=== PATIENT | female | born 1985 | race Caucasian/White ===

== ENCOUNTER 2017-09-09 14:01 | Outpatient (CLI) | payer OTHER | END 2017-09-09 14:02 | disposition home or self-care (01) | LOC: BICULT 14:01 | PROVIDERS: ATTEND Internal Medicine | DX: E01.0 Iodine-deficiency related diffuse (endemic) goiter (principal); E04.9 Nontoxic goiter, unspecified; E04.2 Nontoxic multinodular goiter | CPT/HCPCS: 76536 ==

== ENCOUNTER 2017-10-24 17:04 | Emergency (ER) | payer OTHER, SELFPAY ==
[2017-10-24 17:33] LABS: Bilirubin Negative (Negative); Blood, Urine Negative (Negative); Clarity Slightly Cloudy (Clear); Glucose, Urine (Dipstick) Negative (Negative); Leukocyte Negative (Negative); Nitrite Negative (Negative); Protein, Urine (Dipstick) Negative (Neg-Trace); Specific Gravity, Urine 1.015 (1.005-1.030); Urobilinogen 0.2 mg/dL (0.2-1.0)
[2017-10-24 17:57] LABS: Pregnancy Test - Urine (BHCG) Negative (Negative); Pregu Control Background? CLEAR/WHITE (CLR/WHITE); Pregu Control Bar Appear? YES (CONTROL BAR); Specific Gravity 1.015 (1.002-1.036)
[2017-10-27 13:18] LABS: Chlamydia by PCR Not Detected (NotDetected); GC by PCR Not Detected (NotDetected)
== END 2017-10-24 18:56 | disposition home or self-care (01) ==
LOC: SCSER 17:04
DX: N89.8 Other specified noninflammatory disorders of vagina (principal)
CPT/HCPCS: 81003; 81025; 87480; 87491; 87510; 87591; 87660; 99283

== ENCOUNTER 2017-11-07 10:18 | Emergency (ER) | payer SELFPAY ==
[2017-11-07 10:39] LABS: Bilirubin Negative (Negative); Blood, Urine Negative (Negative); Clarity Slightly Cloudy (Clear); Glucose, Urine (Dipstick) Negative (Negative); Leukocyte Negative (Negative); Nitrite Negative (Negative); Protein, Urine (Dipstick) Negative (Neg-Trace); Urobilinogen 0.2 mg/dL (0.2-1.0); pH, Urine 6.5 (5.0-9.0)
[2017-11-07 10:40] LABS: Pregnancy Test - Urine (BHCG) POSITIVE (Negative); Pregu Control Background? CLEAR/WHITE (CLR/WHITE); Pregu Control Bar Appear? YES (CONTROL BAR)
--- NOTE | 2017-11-07 12:55 | ULT ---
TRANSABDOMINAL AND TRANSVAGINAL PELVIC ULTRASOUND: Date: 11/07/17 PROVIDED CLINICAL HISTORY: Positive beta HCG. FINDINGS: Uterus measures about 8.2 x 5.8 x 6.9 cm. Endometrial thickening is noted, measuring about 2.4 cm. Th ere is a tiny circumscribed focus of diminished echogenicity within the endometrial canal which is no nspecific. This could reflect a very early gestational sac, but demonstrates no yolk sac or lois e for confirmation of such. The right and left ovaries demonstrate a normal sonographic appearance. Color Doppler and spectral an alysis of the ovarian waveforms demonstrates normal flow bilaterally. There is a small amount of poss ibly physiologic free pelvic fluid. IMPRESSION: No definite evidence for intrauterine gestational sac. Findings may reflect an early gestational sac. Correlation with follow-up beta HCG values/ultrasound recommended. POS: [facility]
[2017-11-10 23:41] LABS: Chlamydia by PCR Not Detected (NotDetected); GC by PCR Not Detected (NotDetected)
== END 2017-11-07 12:27 | disposition home or self-care (01) ==
LOC: SCSER 10:18
DX: O99.89 Other specified diseases and conditions complicating pregnancy, childbirth and the puerperium (principal); R35.0 Frequency of micturition; R39.15 Urgency of urination
CPT/HCPCS: 36415; 76856; 81003; 81025; 84702; 87480; 87491; 87510; 87591; 87660

== ENCOUNTER 2018-01-16 17:44 | Emergency (ER) | payer OTHER ==
--- NOTE | 2018-01-16 18:52 | RAD ---
CHEST TWO VIEWS: 01/16/18 HISTORY: Cough. COMPARISON: None. FINDINGS: Normal cardiac silhouette. The pulmonary vessels and hilum are normal. Costophrenic angles are clear. No consolidation or mass. No pneumothorax or osseous abnormalities. IMPRESSION: No acute cardiopulmonary process. POS: [facility]
== END 2018-01-16 19:07 | disposition home or self-care (01) ==
LOC: SCSER 17:44
DX: O99.512 Diseases of the respiratory system complicating pregnancy, second trimester (principal); Z3A.16 16 weeks gestation of pregnancy; J20.9 Acute bronchitis, unspecified
CPT/HCPCS: 71046

== ENCOUNTER 2018-04-01 12:56 | Outpatient (CLI) | payer OTHER ==
--- NOTE | 2018-04-01 14:44 | ULT ---
THYROID ULTRASOUND: History: Thyroid nodule. FINDINGS: Real-time imaging of the right and left lobes of the thyroid were performed. Right lobe measures 1.9 x 2 x 4.3 cm. The left lobe 1.6 x 1.6 x 4 cm. There are small bilateral thyroid nodules all of which are less than 1 cm in size. These appear to be solid or some may be complex. These all appear well circumscribed. IMPRESSION: Tiny bilateral thyroid nodules. POS: [facility]
== END 2018-04-01 12:57 | disposition home or self-care (01) ==
LOC: SCSULT 12:56
PROVIDERS: ATTEND Internal Medicine
DX: E04.2 Nontoxic multinodular goiter (principal)
CPT/HCPCS: 76536

== ENCOUNTER → 2018-04-19 | Day surgery (SDC) | payer OTHER | LOC: ER/OP 11:40 | PROVIDERS: ATTEND Obstetrics & Gynecology | DX: O36.0190 Maternal care for anti-D [Rh] antibodies, unspecified trimester, not applicable or unspecified (principal) | CPT/HCPCS: 90384; 96372 ==

== ENCOUNTER 2018-05-22 11:14 | Emergency (ER) | payer OTHER | END 2018-05-22 12:30 | disposition home or self-care (01) | LOC: ERS 11:14 | DX: O99.513 Diseases of the respiratory system complicating pregnancy, third trimester (principal); J06.9 Acute upper respiratory infection, unspecified; Z3A.34 34 weeks gestation of pregnancy | CPT/HCPCS: 87081; 87430; 87804; 99283 ==

== ENCOUNTER 2018-06-06 13:07 | Day surgery (SDC) | payer OTHER ==
[2018-06-06] MEDS ORDERED: Lactated Ringer's 1,000 ML IV SCH (14:30)
[2018-06-06 15:04] LABS: Bilirubin Negative (Negative); Blood, Urine Negative (Negative); Clarity CLEAR (Clear); Glucose, Urine (Dipstick) Negative (Negative); Leukocyte Negative (Negative); Nitrite Negative (Negative); Protein, Urine (Dipstick) Negative (Neg-Trace); Specific Gravity, Urine 1.014 (1.002-1.036); Urobilinogen 0.2 mg/dL (0.2-1.0)
[2018-06-06 15:06] LABS: Bacteria/HPF None Seen HPF (None Seen); Hyaline Casts/LPF 0-3 HYALINE CAST LPF (0-3 Hyaline); RBC/HPF 0-3 HPF (0-3); Squamous Epithelial 0-3 HPF (0-3); WBC/HPF 0-3 HPF (0-3)
--- NOTE | 2018-06-06 15:54 | PRG ---
DATE OF SERVICE: 06/06/2018 PRIMARY OB: Ruiz Guillen MD CHIEF COMPLAINT: Abdominal pain. HISTORY OF PRESENT ILLNESS: The patient is a 33-year-old G4, P3 female with an intrauterine at 35 weeks and 1 day, who is presenting to Labor and Delivery with abdominal and back pain that began this morning about 6 o'clock. The patient reports that she has history of delivery with one of her children at 36 weeks and is here just to make sure she is not in labor. The patient reports that her contractions have been improving since they first started. She does report that she had intercourse last night. She denies any vaginal bleeding or leakage of fluid. She does report she had some burning with urination since intercourse and that she has had a diagnosis of yeast infection, which was treated about a week ago and prior to that had been on antibiotics for an upper respiratory infection. The patient denies any fever, fall, headache, chest pain, shortness of breath, nausea, vomiting, diarrhea, or constipation. She reports she has had real significant hip problems with this . Denies any rashes, any weakness or other joint problems. She denies vaginal bleeding. She reports some urinary burning when she pees. PAST MEDICAL HISTORY: Migraines. PAST SURGICAL HISTORY: She had a laparoscopic surgery for ovarian cyst resulting in cystectomy and removal of one of her tubes. SOCIAL HISTORY: Reports occasional drinking when she is not . Denies drug or tobacco use. ALLERGIES: ADHESIVE TAPE. MEDICATIONS: vitamins. OB LABS: Blood type is O negative. Antibody screen is negative. She is rubella immune. RPR is nonreactive. HIV is nonreactive. Hepatitis B surface antigen is nonreactive. REVIEW OF SYSTEMS: Per HPI. PHYSICAL EXAMINATION: VITAL SIGNS: Blood pressure is 102/64, heart rate of 110, respiratory rate of 18, temperature 98.7. GENERAL: She appears to be in no acute distress. She is alert, oriented, cooperative, and pleasant to interact with. HEAD: Normocephalic, atraumatic. LUNGS: Clear to auscultation bilaterally. HEART: Has regular rate and rhythm. ABDOMEN: Gravid and soft. EXTREMITIES: Nontender. Nonedematous. CERVICAL EXAM: Per nursing staff is 270, -1 station. Tocometer heart tracing performed for abdominal pains and back pains demonstrates a fetus in the 130s with moderate long-term variability, positive 15 x 15 accelerations, no decelerations. Uterine contractions are irregular seem to be occurring about every 4 to 10 minutes and are generally spacing with IV hydration. LABORATORY DATA: Urinalysis shows negative nitrites, negative leukocyte esterase, negative white blood cells, negative bacteria, negative squamous cells. VPIII is pending. ASSESSMENT AND PLAN: The patient is a 33-year-old female, who is complaining of uterine contractions, abdominal pains, backs pains that began last night and into the morning. She admits to intercourse during this time. She also admits that these pains have been improving over time. She does have contractions on the monitor. However, she has no evidence of labor at this time nor evidence of urinary tract infection. Her VPIII is pending. The patient has been given an IV bolus of lactated Ringer given the presence of contractions and a slightly dilated cervix at 2 and 70. If she were to have cervical supervisor records change the next couple of hours, plan would be at this time to administer steroids and expectant management. If she makes no supervisor records change a couple of hours, the patient will be discharged home with appropriate treatment for her VPIII results. The patient had been given instructions to follow up with her primary OB, Dr. Guillen this week. Job ID: [id number]
[2018-06-06] MEDS ORDERED: Acetaminophen 500 MG TAB PO SCH (17:45)
== END 2018-06-06 19:05 | disposition home or self-care (01) ==
LOC: L&D/OP 13:07
PROVIDERS: ATTEND Obstetrics & Gynecology
DX: O47.03 False labor before 37 completed weeks of gestation, third trimester (principal); O99.89 Other specified diseases and conditions complicating pregnancy, childbirth and the puerperium; R10.9 Unspecified abdominal pain; M54.9 Dorsalgia, unspecified; O99.353 Diseases of the nervous system complicating pregnancy, third trimester; G43.909 Migraine, unspecified, not intractable, without status migrainosus; Z3A.35 35 weeks gestation of pregnancy; Z79.899 Other long term (current) drug therapy; Z91.048 Other nonmedicinal substance allergy status
CPT/HCPCS: 81001; 87480; 87510; 87660; 96360; 99284

== ENCOUNTER 2018-06-21 12:17 | Inpatient (IN) | payer OTHER ==
[2018-06-21 12:59] VITALS: BMI 36.7
[2018-06-21] MEDS ORDERED: Ibuprofen 800 MG TAB PO PRN (15:59)
[2018-06-21] MEDS ORDERED: Lidocaine 1% (PF) 30 ML VIAL SC PRN (15:59)
[2018-06-21] MEDS ORDERED: NS / Oxytocin 40 units/1000ml 1,000 ML IV PRN (15:59)
[2018-06-21] MEDS ORDERED: Promethazine HCl 25 MG/ML VIAL IM PRN ×2 (15:59→18:57)
[2018-06-21] MEDS ORDERED: HYDROcodone/Acetaminophen 5/325 mg Tablet PO PRN ×2 (15:59)
[2018-06-21] MEDS ORDERED: Diphenoxylate HCl/Atropine Tablet PO PRN ×2 (15:59)
[2018-06-21] MEDS ORDERED: Ondansetron PF 4 MG/2 ML Vial IVP PRN ×2 (15:59→18:57)
[2018-06-21] MEDS ORDERED: Misoprostol 200 MCG TAB PR PRN (15:59)
[2018-06-21] MEDS ORDERED: Carboprost 250 MCG/ML AMP IM PRN (15:59)
[2018-06-21] MEDS ORDERED: Butorphanol Tartrate 1 MG/ML VIAL SLOW IVP PRN (15:59)
[2018-06-21] MEDS ORDERED: NS w/ Oxytocin 10 units 500 ML IV SCH ×2 (16:00)
[2018-06-21 16:27] LABS: Hemoglobin 12.5 g/dL (12.0-16.0); Mean Corpuscular HGB CONC 33.2 g/dL (32.0-36.0); Mean Corpuscular Hemoglobin 28.4 pg (27.0-31.0); Mean Corpuscular Volume 85.5 fL (78.0-98.0); Mean Platelet Volume 7.6 fL (7.4-10.4); Platelet Count 293 thou/uL (130-400); RBC Distribution Width 13.4 % (11.5-14.5); Red Blood Cell (RBC) Count 4.39 mill/uL (4.20-5.40); White Blood Cell (WBC) Count 10.3 thou/uL (4.8-10.8)
[2018-06-21 17:03] LABS: Syphilis Antibody Nonreactive (Nonreactive); Syphilis Antibody Index 0.03 S/CO (<1.00 Non-Reactive)
[2018-06-21 17:04] LABS: HBSAg Index 0.29 S/CO (0-0.99); Hep B Surf Ag Non-Reactive S/CO (NonReactive)
[2018-06-21] MEDS: Lactated Ringer's 1,000 ML IV SCH ×3 (17:17→21:49)
[2018-06-21] MEDS ORDERED: Fentanyl 4 mcg/Bup 0.1% Cadd 100 ML ONE (18:01)
[2018-06-21] MEDS ORDERED: Calcium Carbonate 500 MG ChewTAB PO SCH (18:15)
[2018-06-21] MEDS ORDERED: diphenhydrAMINE 50 MG/ML VIAL IVP PRN (18:57)
[2018-06-21] MEDS ORDERED: ePHEDrine/0.9% NaCl/PF SYRINGE 50 mg/10 ml SLOW IVP PRN (18:57)
[2018-06-21] MEDS ORDERED: Eucerin (Mineral Oil/Petrolatum,White) 30 gm Jar TOP PRN (18:57)
[2018-06-21] MEDS ORDERED: Lactated Ringer's 500 ML IV PRN (18:57)
[2018-06-21] MEDS ORDERED: Naloxone HCl 0.4 mg/ml Vial IVP PRN ×2 (18:57)
[2018-06-21] MEDS ORDERED: Acetaminophen 325 MG TAB PO PRN (18:57)
[2018-06-21] MEDS ORDERED: Communication Order-Pharmacy FS SCH (19:00)
[2018-06-21] MEDS ORDERED: Fentanyl 4 mcg/Bupivacaine 0.1% Cassette 100 ML EPIDURAL SCH (19:00)
[2018-06-22] MEDS ORDERED: Lidocaine 1% (PF) 30 ML VIAL ONE (02:24)
[2018-06-22] MEDS ORDERED: Fentanyl 4 mcg/Bup 0.1% Cadd 100 ML ONE (02:24)
[2018-06-22] MEDS ORDERED: Misoprostol 200 MCG TAB ONE ×2 (02:25→03:30)
--- NOTE | 2018-06-22 04:45 | PDOC.LDHP ---
Labor and Delivery H&P Chief complaint: contractions HPI: 33 year old at 37 weeks 0 days presents to L&D c/o contractions. Patient has made cervical change since the clinic exam, and appears to be in labor. Cervix is 4.5cm dilated on my exam here. 2 elevated BPs also recorded today hours apart, concerning of new dx of GHTN. Due date: 07/12/18 Grav: 4 Para: 2 Current complications: none Abnormal US findings: No Current medications: pre- vitamins Allergies/Adverse Reactions: Allergies Allergy/AdvReac Type Severity Reaction Status Date / Time No Known Allergies Allergy Verified 06/21/18 12:59 Social history: none - Physical Exam Vital signs reviewed and normal: yes General: NAD, breathing through contractions Heart: RRR Lungs: nonlabored breathing Abdomen: gravid Extremeties: no edema FHT: category 1 - Vaginal Exam cm dilated: 4 - Assessment L&D Assessment: term patient in labor - Plan Plan: admit to L&D, labor augmentation if indicated
[2018-06-22] MEDS ORDERED: NS / Oxytocin 40 units/1000ml 1,000 ML IV SCH (07:03)
[2018-06-22] MEDS ORDERED: Preparation H Ointment 28 GM TUBE PR PRN (07:03)
[2018-06-22] MEDS ORDERED: Bisacodyl 10 MG SUPP PR PRN (07:03)
[2018-06-22] MEDS ORDERED: Benzocaine-Menthol 82.5 ML CAN TOP PRN (07:03)
[2018-06-22] MEDS ORDERED: Promethazine HCl 25 MG/ML VIAL IM PRN (07:03)
[2018-06-22] MEDS ORDERED: diphenhydrAMINE 25 MG CAP PO PRN (07:03)
[2018-06-22] MEDS ORDERED: Ondansetron PF 4 MG/2 ML Vial IVP PRN (07:03)
[2018-06-22] MEDS ORDERED: Milk Of Magnesia 30 ML UDCUP PO PRN (07:03)
[2018-06-22] MEDS ORDERED: Ibuprofen 800 MG TAB PO SCH (07:30)
[2018-06-22] MEDS: HYDROcodone/Acetaminophen 5/325 mg Tablet PO PRN ×3 (07:35→22:54)
[2018-06-22] MEDS: Ibuprofen 800 MG TAB PO SCH ×2 (08:15→17:14)
[2018-06-22] MEDS: Prenatal Vitamin 1 TAB PO SCH (08:15)
[2018-06-22] MEDS: Docusate Calcium (SURFAK) 240 MG CAP PO SCH ×2 (08:15→21:30)
[2018-06-22] MEDS: Ferrous Sulfate 325 MG TAB PO SCH ×2 (08:57→17:11)
[2018-06-22] MEDS ORDERED: ePHEDrine/0.9% NaCl/PF SYRINGE 50 mg/10 ml ONE (11:11)
[2018-06-22] MEDS ORDERED: Bupivacaine 0.25% HCL 30 ML VIAL ONE (11:11)
[2018-06-22] MEDS ORDERED: Sodium Chloride 0.9% (PF) 10 ML VIAL ONE (11:11)
[2018-06-22] MEDS ORDERED: Measles/Mumps/Rubella 10 MCG/0.5 ML VIAL SC ONE (12:00)
[2018-06-22] MEDS ORDERED: Varicella virus, LIVE 0.5 ML VIAL SC ONE (12:00)
[2018-06-22] MEDS ORDERED: Adacel (T-DAP) 0.5 ML SYRINGE IM ONE (12:00)
[2018-06-22] MEDS: Lanolin Ointment 7 GM TUBE TOP PRN (21:30)
[2018-06-23] MEDS: Ibuprofen 800 MG TAB PO SCH ×4 (00:41→22:15)
[2018-06-23] MEDS: HYDROcodone/Acetaminophen 5/325 mg Tablet PO PRN ×5 (05:05→22:32)
[2018-06-23 06:37] LABS: Hemoglobin 10.3 g/dL (12.0-16.0); Mean Corpuscular HGB CONC 32.5 g/dL (32.0-36.0); Mean Corpuscular Hemoglobin 28.7 pg (27.0-31.0); Mean Corpuscular Volume 88.3 fL (78.0-98.0); Mean Platelet Volume 7.4 fL (7.4-10.4); Platelet Count 223 thou/uL (130-400); RBC Distribution Width 13.7 % (11.5-14.5); Red Blood Cell (RBC) Count 3.58 mill/uL (4.20-5.40); White Blood Cell (WBC) Count 10.4 thou/uL (4.8-10.8)
[2018-06-23] MEDS: Ferrous Sulfate 325 MG TAB PO SCH ×2 (08:26→16:31)
[2018-06-23] MEDS: Prenatal Vitamin 1 TAB PO SCH (08:45)
[2018-06-23] MEDS: Docusate Calcium (SURFAK) 240 MG CAP PO SCH ×2 (08:45→22:15)
--- NOTE | 2018-06-23 20:22 | PDOC.PP ---
Post Progress Note Post Day #: 1 PO intake tolerated: yes Flatus: yes Ambulation: yes Weight Weight 214 lb - Physical Examination General: NAD Cardiovascular: no m/r/g, RRR Respiratory: clear to auscultation bilaterally Abdominal: + bowel sounds, lochia, no distention Extremities: negative homans (B) Neurological: no gross focal deficits Psychiatric: A&Ox3, normal affect (DC in AM) Result Diagrams: 06/23/18 06:22 Additional Labs: Post Labs Blood Type O NEGATIVE 06/21/18 17:25 Hep Bs Antigen Non-Reactive S/CO (NonReactive) 06/21/18 16:16
--- NOTE | 2018-06-24 03:50 | DN ---
DATE OF PROCEDURE: 06/22/2018 All my office documentation as under [facility]. DELIVERY DATE: 06/22/2018. PREOPERATIVE DIAGNOSIS: Intrauterine at 37 weeks and 3 days with term spontaneous onset of labor. POSTOPERATIVE DIAGNOSIS: Intrauterine at 37 weeks and 3 days with term spontaneous onset of labor. PROCEDURE: Spontaneous vaginal delivery over intact perineum. FINDINGS: Viable male infant, weighing 3665 g or 8 pounds 1 ounce, Apgars of 8 and 9. QUANTITATIVE BLOOD LOSS: 56. COMPLICATIONS: None. PROCEDURE IN DETAIL: The patient presented to [facility] where she was admitted to the labor and delivery service. The patient underwent a normal and uneventful labor with normal cervical dilatation until she was found to be completely dilated. She was then allowed to push and was able to bring the baby down and delivered the baby in a vertex presentation without difficulties. Once the head delivered in occiput anterior position, the shoulders followed spontaneously along with the rest of the baby's body. Once out the baby's mouth and nose were bulb suctioned. The cord was clamped and cut and baby was handed to waiting attendants. Cord blood was collected. Gentle fundal massage was performed and the placenta delivered intact without problems. Hemostasis was assured. Quantitative blood loss was calculated. Inspection of the cervix, vaginal vault, and perineum did not reveal any lacerations needing suturing. Once again, hemostasis was within normal limits and the patient was allowed to recover in the labor and delivery room. Baby went to nursery. Job ID: [id number]
[2018-06-24] MEDS: HYDROcodone/Acetaminophen 5/325 mg Tablet PO PRN ×3 (04:26→13:44)
[2018-06-24] MEDS: Ibuprofen 800 MG TAB PO SCH ×2 (05:28→13:49)
[2018-06-24] MEDS: Lanolin Ointment 7 GM TUBE TOP PRN (07:54)
[2018-06-24] MEDS: Docusate Calcium (SURFAK) 240 MG CAP PO SCH (07:54)
[2018-06-24] MEDS: Prenatal Vitamin 1 TAB PO SCH (07:54)
[2018-06-24 08:45] VITALS: BP 113/73; TEMP 97.6
[2018-06-24] MEDS: Ferrous Sulfate 325 MG TAB PO SCH (11:23)
== END 2018-06-24 18:05 | disposition home or self-care (01) | DRG 807 ==
LOC: L&D/OP 12:17 → L&D 15:38 → 3SW 06-22 07:56
PROVIDERS: ADMIT Obstetrics & Gynecology; ATTEND Obstetrics & Gynecology
PROC: 10E0XZZ Delivery of Products of Conception, External Approach (ICD-10-PCS; principal; 2018-06-22)
DX: O13.4 Gestational [pregnancy-induced] hypertension without significant proteinuria, complicating childbirth (principal); Z37.0 Single live birth; Z3A.37 37 weeks gestation of pregnancy
CPT/HCPCS: 36415; 51702; 82570; 84156; 85027; 86780; 86850; 86870; 86900; 86901; 87340; 99285; J2001; J2590; S0020

== ENCOUNTER 2018-09-09 16:38 | Emergency (ER) | payer OTHER ==
[2018-09-09 16:54] LABS: Bilirubin Negative (Negative); Blood, Urine Negative (Negative); Clarity Clear (Clear); Glucose, Urine (Dipstick) Negative (Negative); Leukocyte Negative (Negative); Nitrite Negative (Negative); Protein, Urine (Dipstick) Negative (Neg-Trace); Urobilinogen 0.2 mg/dL (Less than 2)
[2018-09-09 16:59] LABS: Pregnancy Test - Urine (BHCG) Negative (Negative); Pregu Control Background? CLEAR/WHITE (CLR/WHITE); Pregu Control Bar Appear? YES (CONTROL BAR); Specific Gravity 1.015 (1.002-1.036)
== END 2018-09-09 17:34 | disposition home or self-care (01) ==
LOC: SCSER 16:38
DX: N89.8 Other specified noninflammatory disorders of vagina (principal); R35.0 Frequency of micturition
CPT/HCPCS: 81003; 81025; 87480; 87491; 87510; 87591; 87660; 99283

== ENCOUNTER 2018-10-10 09:12 | Emergency (ER) | payer OTHER, SELFPAY | END 2018-10-10 09:34 | disposition home or self-care (01) | LOC: SCSER 09:12 | DX: R21 Rash and other nonspecific skin eruption (principal) | CPT/HCPCS: 99281 ==